=== PATIENT | female | born 1985 | race Caucasian/White ===

== ENCOUNTER 2018-11-05 20:14 | Emergency (ER) | payer SELFPAY ==
[~2018-11-05] VITALS: Ht 160 cm; Wt 72.6 kg
[2018-11-05 21:00] VITALS: BP 146/72
[2018-11-05] MEDS ORDERED: HYDR-2761 PO (21:02)
--- NOTE | 2018-11-05 21:03 | PHYS DOC ---
Adult General Chief Complaint Chief Complaint: ABSCESS HPI HPI Patient is a 33 year old female who presents with went to [facility] yesterday and had her tell on abscess open her for the third time. Patient states this is third time over years that she's had to have it opened and she still to a surgeon at the intermediate have a core removed. Patient states that the abscess is more painful today since she's had a cut open yesterday. Patient only taking 2 doses of her doxycycline and states they did not give her any pain medicine. Patient complaining of increased pain. Review of Systems Review of Systems Constitutional: Denies fever or chills [] Eyes: Denies change in visual acuity, redness, or eye pain [] HENT: Denies nasal congestion or sore throat [] Respiratory: Denies cough or shortness of breath [] Cardiovascular: No additional information not addressed in HPI [] GI: Denies abdominal pain, nausea, vomiting, bloody stools or diarrhea [] : Denies dysuria or hematuria [] Musculoskeletal: Denies back pain or joint pain [] Integument: Tailbone abscess. Denies rash or skin lesions [] Neurologic: Denies headache, focal weakness or sensory changes [] Endocrine: Denies polyuria or polydipsia [] All other systems were reviewed and found to be within normal limits, except as documented in this note. Physical Exam Physical Exam Constitutional: Well developed, well nourished, no acute distress, non-toxic appearance. [] HENT: Normocephalic, atraumatic, bilateral external ears normal, oropharynx moist, no oral exudates, nose normal. [] Eyes: PERRLA, EOMI, conjunctiva normal, no discharge. [] Neck: Normal range of motion, no tenderness, supple, no stridor. [] Cardiovascular:Heart rate regular rhythm, no murmur [] Lungs & Thorax: Bilateral breath sounds clear to auscultation [] Abdomen: Bowel sounds normal, soft, no tenderness, no masses, no pulsatile masses. [] Skin: Warm, dry, Tailbone quarter sized opened, hard, nondraining abscess. erythema, no rash. [] Back: No tenderness, no CVA tenderness. [] Extremities: No tenderness, no cyanosis, no clubbing, ROM intact, no edema. [] Neurologic: Alert and oriented X 3, normal motor function, normal sensory function, no focal deficits noted. [] Psychologic: Affect normal, judgement normal, mood normal. [] EKG EKG [] Radiology/Procedures Radiology/Procedures [] Course & Med Decision Making Course & Med Decision Making Patient is a 33 year old female who presents with went to [facility] yesterday and had her tell on abscess open her for the third time. Patient states this is third time over years that she's had to have it opened and she still to a surgeon at the intermediate have a core removed. Patient states that the abscess is more painful today since she's had a cut open yesterday. Patient only taking 2 doses of her doxycycline and states they did not give her any pain medicine. Patient complaining of increased pain. Alert and oriented. Afebrile. Vital signs within normal limits. Telephone abscess is opened but there is no drainage seen. She does have a quarter sized redness around the abscess center itself. The area is hard and nonfluctuant. Patient states that they did tell her to call the surgeon for her follow-up within 1-2 days. Patient states she has not called the surgeon that she will call them tomorrow for her follow-up appointment. I told the patient to continue taking her doxycycline as prescribed and make sure she calls a surgeon in the morning. Patient to continue taking ibuprofen and I will give her a prescription for hydrocodone. Patient agrees to this discharge plan. Dragon Disclaimer Dragon Disclaimer This electronic medical record was generated, in whole or in part, using a voice recognition dictation system. Departure Departure Impression: Primary Impression: Encounter for medical screening examination Disposition: HOME, SELF-CARE Condition: STABLE Referrals: NO PCP (PCP) Patient Instructions: Medical Screening Exam Additional Instructions: Take medications as prescribed. Call the surgeon in the morning. Continue doing warm water soaks. Keep area clean and covered. Scripts Hydrocodone Bit/Acetaminophen (HYDROCODONE-APAP 5-325 ) 1 Tab Tablet 1 TAB PO PRN Q6HRS PRN for PAIN, #10 TAB 0 Refills Prov: ISABEL WHITE APRN 11/05/18 ISABEL WHITE APRN Nov 05, 2018 21:03
== END 2018-11-05 21:15 | disposition home or self-care (01) ==
LOC: ER 20:14
DX: L05.01 Pilonidal cyst with abscess (principal)
CPT/HCPCS: 99283

== ENCOUNTER 2020-09-02 14:47 | Emergency (ER) | payer SELFPAY ==
[~2020-09-02] VITALS: Ht 144.8 cm; Wt 68.0 kg
[~2020-09-02 14:47] MED LIST: HYDR-2761 PO
[2020-09-02 15:09] VITALS: BP 138/60
[2020-09-02] MEDS ORDERED: HYDR-2761 PO (15:39)
[2020-09-02] MEDS ORDERED: CEPH500C PO (15:39)
--- NOTE | 2020-09-02 15:40 | PHYS DOC ---
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 She states been there for the last week. She states she keeps getting the cyst there and then it opens and drains on its own. She states the last week it is come back and she started to have pain to the area. She states she knows that she needs to go see a surgeon to have it removed but she has no insurance at this time. Patient is rating her pain burning 6 out of 10. She denies fever, body aches, nausea, vomiting, diarrhea. Patient has a history of chronic tachycardia, heart surgery as a , diabetes, kidney stones. Review of Systems: Review of Systems: Constitutional: Denies fever or chills. [] Eyes: Denies change in visual acuity. [] HENT: Denies nasal congestion or sore throat. [] Respiratory: Denies cough or shortness of breath. [] Cardiovascular: Denies chest pain or edema. [] GI: Denies abdominal pain, nausea, vomiting, bloody stools or diarrhea. [] : Denies dysuria. [] Musculoskeletal: Denies back pain or joint pain. + Coccyx pain [] Integument: Denies rash. + Coccyx abscess [] Neurologic: Denies headache, focal weakness or sensory changes. [] Endocrine: Denies polyuria or polydipsia. [] Lymphatic: Denies swollen glands. [] Psychiatric: Denies depression or anxiety. [] Heart Score: C/O Chest Pain: No Risk Factors: Risk Factors: DM, Current or recent (<one month) smoker, HTN, HLP, family history of CAD, obesity. Risk Scores: Score 0 - 3: 2.5% MACE over next 6 weeks - Discharge Home Score 4 - 6: 20.3% MACE over next 6 weeks - Admit for Clinical Observation Score 7 - 10: 72.7% MACE over next 6 weeks - Early Invasive Strategies Allergies: Allergies: Allergies Coded Allergies Type Severity Reaction Last Updated Verified Sulfa (Sulfonamide Antibiotics) Allergy Intermediate 09/02/20 Yes Physical Exam: PE: Constitutional: Well developed, well nourished, no acute distress, non-toxic appearance. [] HENT: Normocephalic, atraumatic, bilateral external ears normal, oropharynx moist, no oral exudates, nose normal. [] Eyes: PERRLA, EOMI, conjunctiva normal, no discharge. [] Neck: Normal range of motion, no tenderness, supple, no stridor. [] Cardiovascular:Heart rate regular rhythm, no murmur [] Lungs & Thorax: Bilateral breath sounds clear to auscultation [] Abdomen: Bowel sounds normal, soft, no tenderness, no masses, no pulsatile masses. [] Skin: Warm, dry, no erythema, no rash. Very small 4 mm area that is round and like a pimple to the coccyx on the left side [] Back: No tenderness, no CVA tenderness. [] Extremities: No tenderness, no cyanosis, no clubbing, ROM intact, no edema. [] Neurologic: Alert and oriented X 3, normal motor function, normal sensory function, no focal deficits noted. [] Psychologic: Affect normal, judgement normal, mood normal. [] Current Patient Data: Vital Signs: Vital Signs Date Time Temp Pulse Resp B/P (MAP) Pulse Ox O2 Delivery O2 Flow Rate FiO2 09/02/20 15:09 97.6 128 12 138/60 (86) 98 Room Air 97.6 EKG: EKG: [] Radiology/Procedures: Radiology/Procedures: [] Course & Med Decision Making: Course & Med Decision Making Pertinent Labs and Imaging studies reviewed. (See chart for details) See HPI. Alert and oriented x4. Skin pink warm and dry. No associated cellulitis. Speaks in full complete sentences. Ambulatory with a steady gait. Afebrile. The area again is very hard and nonfluctuant and very small. Is nondraining at this time. Patient will be placed on a antibiotic. I have spoken to her about places such as [facility] that does take patients without any insurance. [] Joseph Disclaimer: Joseph Disclaimer: This electronic medical record was generated, in whole or in part, using a voice recognition dictation system. Departure Departure Impression: Primary Impression: Abscess Disposition: HOME / SELF CARE / HOMELESS Condition: STABLE Referrals: NO PCP (PCP) WHIT STALEY MD Patient Instructions: Abscess, Sitz Bath Additional Instructions: Follow-up with your primary care physician or with a general surgeon. I referred you to ours. [facility] that [facility] patients without insurance. Use a warm compress or sits baths. Take antibiotic as prescribed and with food. Scripts Hydrocodone Bit/Acetaminophen (HYDROCODONE-APAP 5-325 ) 1 Tab Tablet 1 TAB PO PRN Q6HRS PRN for PAIN, #8 TAB 0 Refills Prov: ISABEL WHITE APRN 09/02/20 Cephalexin (CEPHALEXIN) 500 Mg Capsule 1 CAP PO QID, #40 CAP Prov: ISABEL WHITE APRN 09/02/20 ISABEL WHITE APRN September 02, 2020 15:40
== END 2020-09-02 15:40 | disposition home or self-care (01) ==
LOC: ER 14:47
DX: L02.212 Cutaneous abscess of back [any part, except buttock and flank] (principal); E11.9 Type 2 diabetes mellitus without complications; Z98.51 Tubal ligation status; Z87.442 Personal history of urinary calculi; Z88.2 Allergy status to sulfonamides
CPT/HCPCS: 99283